=== PATIENT | female | born 1965 | race African-American/Black ===

== ENCOUNTER 2017-11-10 11:13 | Emergency (ER) | payer BC ==
[~2017-11-10] VITALS: Ht 157.5 cm; Wt 83.2 kg
[~2017-11-10 11:13] MED LIST: BENADRYL25 MG; BENADRYL50 MG PO; CIPROFLOXACIN H10 ML LEFT EYE; HYDROCODON-ACE1 EAC7 PO; LEVOCETIRIZINE D5 MG PO; LEVOTHYROXINE25 MCG PO; LYRICA75 MG PO; MOTRIN600 MG PO; NOHOMEMEDS; PERCOCET 5/31 TABLET PO; PREDNISONE10 M1 PO; TRAMADOL HCL200 MG PO; TRAMADOL HCL50 MG PO; ULTRAM50 MG PO; VALIUM5 MG PO
[2017-11-10 12:00] LABS: HEMATOCRIT 46.4 % (36.0-46.0); HEMOGLOBIN 15.4 G/DL (11.9-15.5); MCH 29.1 PG (29.0-34.0); MCHC 33.2 G/DL (30.0-36.0); MCV 87.5 FL (83-99); RBC DIS.WIDTH-CV 13.3 % (11.8-14.6); WHITE BLOOD COUNT 6.8 K/uL (4.1-10.2)
[2017-11-10 12:09] LABS: ALBUMIN 4.3 g/dL (3.2-4.8); CHLORIDE 109 mEq/L (99-109); POTASSIUM 4.1 mEq/L (3.7-5.4); SODIUM 140 mEq/L (136-147)
[2017-11-10 12:11] LABS: GLUCOSE 117 mg/dL (70-99); TOTAL PROTEIN 7.6 g/dL (6.4-8.3)
[2017-11-10 12:13] LABS: TOTAL BILIRUBIN 0.3 mg/dL (0.0-1.0)
[2017-11-10 12:15] LABS: ALKALINE PHOSPHATASE 108 IU/L (3-129); CREATININE 0.9 mg/dL (0.6-1.3); GFR ESTIMATE (CALCULATED) > 59 mL/min/
[2017-11-10 12:16] LABS: UREA NITROGEN (BUN) 14 mg/dL (9-23)
[2017-11-10 12:17] LABS: AST (GOT) 44 IU/L (2-34)
[2017-11-10 12:18] LABS: ALT (GPT) 58 IU/L (3-49)
[2017-11-10 12:23] LABS: QUANTITATIVE HCG < 4.0 MIU/ML
[2017-11-10 12:41] LABS: PLATELET COUNT 225 K/uL (156-360)
[2017-11-10 15:09] LABS: APPEARANCE SL.HAZY ((CLEAR)); BILIRUBIN NEGATIVE; BLOOD NEGATIVE; COLOR YELLOW ((YELLOW)); GLUCOSE (STRIP) NEGATIVE; KETONES 5; LEUKOCYTES NEGATIVE; NITRITE NEGATIVE; PROTEIN (STRIP) 30; SPECIFIC GRAVITY 1.031 (1.000-1.030); UROBILINOGEN 0.2 MG/DL (0.2-1.0)
[2017-11-10 15:30] LABS: BACTERIA RARE /HPF; EPITHELIAL CELLS RARE /HPF; MUCUS 1+ /LPF; RED BLOOD CELLS 0-5 /HPF (0-5); UCUL ADDED? NO; WHITE BLOOD CELLS 0-5 /HPF (0-5)
[2017-11-10] MEDS ORDERED: ZOFRAN ODT4 MG PO (16:41)
[2017-11-10 17:06] VITALS: BP 129/85
== END 2017-11-10 17:07 | disposition home or self-care (01) ==
LOC: EME 11:13
PROVIDERS: Nurse Practitioner Family
DX: B34.9 Viral infection, unspecified (principal); Z90.710 Acquired absence of both cervix and uterus
CPT/HCPCS: 80053; 81003; 84702; 85027; 87502; 99281; 99285; J1885